=== PATIENT | female | born 1990 | race Caucasian/White ===

== ENCOUNTER 2019-09-06 12:36 | Outpatient (CLI) | payer SELFPAY ==
[2019-09-06] MEDS ORDERED: LACTATED RINGERS 1,000 ML IV SCH (14:00)
[2019-09-06 14:09] LABS: Color,Urine Straw (Yellow)
[2019-09-06 14:10] LABS: Bilirubin,Urine NEG (Negative); Blood,Urine NEG (Negative); Mucus,Urine FEW /HPF; Protein,Urine <15 mg/dL mg/dL (Negative); Urobilinogen,Urine < 2.0 mg/dL (<2.0); WBC,Urine < 1.0 /HPF (0.0-6.0)
[2019-09-06] MEDS ORDERED: LACTATED RINGERS 500 ML IV ONE (14:21)
[2019-09-06 15:54] VITALS: BP 95/52
== END 2019-09-06 16:14 | disposition home or self-care (01) ==
LOC: TRG 12:36
PROVIDERS: ATTEND Obstetrics & Gynecology
DX: O46.92 Antepartum hemorrhage, unspecified, second trimester (principal); O47.02 False labor before 37 completed weeks of gestation, second trimester; Z3A.25 25 weeks gestation of pregnancy
CPT/HCPCS: 59025; 81001; J7120